=== PATIENT | female | born 1955 | race Caucasian/White ===

== ENCOUNTER 2017-07-09 05:37 | Outpatient (CLI) | payer MEDICARE, MEDICAID ==
[~2017-07-09] VITALS: Ht 149.9 cm; Wt 86.2 kg
[2017-07-09] MEDS ORDERED: NF-SOLIF5T PO (15:53)
[2017-07-09] MEDS ORDERED: FLUO20CA25 PO (15:53)
[2017-07-09] MEDS ORDERED: META800T PO (15:53)
[2017-07-09] MEDS ORDERED: HYDR-3820 PO (15:53)
[2017-07-09] MEDS ORDERED: OXCA300T PO (15:53)
[2017-07-09] MEDS ORDERED: GABA600T2 PO (15:53)
[2017-07-09] MEDS ORDERED: QUET200T57 PO (15:53)
[2017-07-09] MEDS ORDERED: MONT10TA24 PO (15:53)
[2017-07-09] MEDS ORDERED: DONE10TA41 PO (15:53)
[2017-07-09] MEDS ORDERED: BUSP15TA60 PO (15:53)
[2017-07-09] MEDS ORDERED: TRAZ100T92 PO (15:53)
[2017-07-09] MEDS ORDERED: OMEP40CA36 PO (15:53)
[2017-07-09] MEDS ORDERED: LOSA100T28 PO (15:53)
[2017-07-09] MEDS ORDERED: ALPR1TAB7 PO (15:53)
[2017-07-09] MEDS ORDERED: DICL75TA2 PO (15:53)
[2017-07-09] MEDS ORDERED: AMLO10TA2 PO (15:53)
[2017-07-09] MEDS ORDERED: ATOR80TA76 PO (15:53)
== END 2017-07-09 15:54 ==
LOC: PREOP 05:37
PROVIDERS: ATTEND Urology
DX: Z01.818 Encounter for other preprocedural examination (principal); N39.46 Mixed incontinence; N81.10 Cystocele, unspecified

== ENCOUNTER 2017-07-16 07:13 | Day surgery (SDC) | payer MEDICARE, MEDICAID ==
[~2017-07-16] VITALS: Ht 149.9 cm; Wt 90.8 kg
[~2017-07-16 07:13] MED LIST: ALPR1TAB7 PO; AMLO10TA2 PO; ATOR80TA76 PO; BUSP15TA60 PO; DICL75TA2 PO; DONE10TA41 PO; FLUO20CA25 PO; GABA600T2 PO; HYDR-3820 PO; LOSA100T28 PO; META800T PO; MONT10TA24 PO; NF-SOLIF5T PO; OMEP40CA36 PO; OXCA300T PO; QUET200T57 PO; TRAZ100T92 PO
[2017-07-16 07:15] VITALS: BP 150/70
[2017-07-16] MEDS ORDERED: ESTRADIOL VAGINAL CREAM 42.5 GM (ESTRACE) VG ONE (07:24)
[2017-07-16] MEDS ORDERED: LIDOCAINE/EPI 1%-1:200,000 (XYLOCAINE) 30 ML VIAL ONE (07:24)
[2017-07-16] MEDS ORDERED: LACTATED RINGERS 1,000 ML IV PRN (07:40)
[2017-07-16] MEDS ORDERED: FAMOTIDINE 20MG/2ML IV (PEPCID) IV ONE (07:45)
[2017-07-16] MEDS ORDERED: cefTRIAXone 1 GM (ROCEPHIN) VIAL ONE (07:57)
[2017-07-16] MEDS ORDERED: NS (IVPB) 50 ML ONE (07:57)
[2017-07-16] MEDS ORDERED: cefTRIAXone 1 GM/NS 50 ML IVPB IV ONE ×2 (08:15)
[2017-07-16] MEDS ORDERED: CATHETER FLUSH 10 ML SYR IV PRN (08:15)
[2017-07-16] MEDS ORDERED: AMIT25TA9 PO ×3 (08:31)
[2017-07-16] MEDS ORDERED: BUDE10.2 IH (08:31)
[2017-07-16] MEDS ORDERED: LORA10TA7 PO (08:31)
[2017-07-16] MEDS ORDERED: RT-ALBUINH IH (08:31)
[2017-07-16] MEDS ORDERED: OXYC-465 PO (08:41)
--- NOTE | 2017-07-16 08:49 | Progress Note-Pre Operative ---
Pre-Operative Progress Note H&P Reviewed The H&P was reviewed, patient examined and no changes noted. Date Seen by Provider: Jul 16, 2017 Time Seen by Provider: 08:48 Date H&P Reviewed: Jul 16, 2017 Time H&P Reviewed: 08:48 Pre-Operative Diagnosis: cystocele, mixed incontinence, OAB, ISD SUYAPA CHAVEZ MD Jul 16, 2017 8:49 am
[2017-07-16] MEDS ORDERED: MIDAZOLAM 2 MG/2 ML (VERSED) VIAL ONE (08:50)
[2017-07-16] MEDS ORDERED: fentaNYL INJECTION 100 MCG/2 ML AMP ONE (08:50)
--- NOTE | 2017-07-16 08:50 | Progress Note-Post Operative ---
Post-Operative Progess Note Surgeon (s)/Infection Control Specialist (s) Surgeon SUYAPA CHAVEZ MD Infection Control Specialist: N/A Pre-Operative Diagnosis cystocele, mixed incontinence, OAB, ISD Post-Operative Diagnosis SAME Procedure & Operative Findings Date of Procedure 07/16/17 Procedure Performed/Findings ANTERIOR REPAIR, PVS, CYSTOSCOPY Anesthesia Type GENERAL Estimated Blood Loss Estimated blood loss (mL): LESS THAN 50CC Specimens/Packing Specimens Removed N/A Packing: PREMARIN VAGINAL PACK SUYAPA CHAVEZ MD Jul 16, 2017 8:50 am
[2017-07-16] MEDS ORDERED: HYDROcodone/APAP 10 MG/325 MG (LORTAB) TAB PO PRN (09:00)
[2017-07-16] MEDS ORDERED: ONDANSETRON 4 MG/2 ML (SDV) Z0FRAN ONE (09:39)
[2017-07-16] MEDS ORDERED: SEVOFLURANE (ULTANE) 15 ML INHAL SOLN ONE (09:39)
[2017-07-16] MEDS ORDERED: LIDOCAINE PF 2% 5 ML (XYLOCAINE) VIAL ONE (09:39)
[2017-07-16] MEDS ORDERED: proPOfol 200 MG/20 ML (DIPRIVAN) VIAL IV ONE (09:39)
[2017-07-16] MEDS ORDERED: LACTATED RINGERS 1,000 ML IV ONE ×2 (09:39→10:24)
[2017-07-16] MEDS ORDERED: morphine INJ 10 MG/ML 1ML (SYR OR VIAL) ONE (10:14)
[2017-07-16] MEDS ORDERED: HYDROmorphone (DILAUDID) 2 MG/ML VIAL IVP PRN (10:15)
[2017-07-16] MEDS ORDERED: ONDANSETRON 4 MG/2 ML (SDV) Z0FRAN IVP PRN (10:15)
[2017-07-16] MEDS: LACTATED RINGERS 1,000 ML IV SCH ×3 (10:17→17:34)
[2017-07-16] MEDS: morphine INJ 10 MG/ML 1ML (SYR OR VIAL) IVP PRN ×2 (10:21→10:28)
[2017-07-16 11:00] VITALS: BP 135/63
[2017-07-16] MEDS ORDERED: RT-ALBUTEROL SULF 2.5 MG/3 ML PRE-MIX VIAL IH PRN (12:45)
[2017-07-16] MEDS ORDERED: GABAPENTIN 600 MG (NEURONTIN) TAB PO SCH (13:00)
[2017-07-16] MEDS ORDERED: busPIRone 15 MG (BUSPAR) TABLET PO SCH (13:00)
[2017-07-16] MEDS ORDERED: OXcarbazepine (TRILEPTAL) 300 MG TAB PO SCH (13:00)
[2017-07-16] MEDS ORDERED: PATIENT MAY USE OWN MEDS, ALL MC SCH (13:15)
[2017-07-16] MEDS: fentaNYL INJECTION 100 MCG/2 ML AMP IVP PRN ×2 (13:39→19:42)
[2017-07-16] MEDS ORDERED: ALBUTEROL IH PRN (14:45)
[2017-07-16 15:41] VITALS: BP 98/63
[2017-07-16] MEDS: oxyCODONE/APAP 10/325MG (PERCOCET 10) TABLET PO PRN (16:17)
[2017-07-16 19:13] VITALS: BP 131/57
[2017-07-16 19:50] VITALS: BP 109/57
[2017-07-16] MEDS: busPIRone 15 MG (BUSPAR) TABLET PO SCH (20:14)
[2017-07-16] MEDS: ALPRAZolam 1 MG (XANAX) TAB PO SCH (20:15)
[2017-07-16] MEDS: GABAPENTIN 600 MG (NEURONTIN) TAB PO SCH (20:17)
[2017-07-16] MEDS: OXcarbazepine (TRILEPTAL) 300 MG TAB PO SCH (20:19)
[2017-07-16] MEDS: METAXALONE 800 MG PO PRN (20:19)
[2017-07-16] MEDS ORDERED: amLODIPine 10 MG (NORVASC) TAB PO SCH (21:00)
[2017-07-16] MEDS ORDERED: traZODone 100 MG (DESYREL) TAB PO SCH (21:00)
[2017-07-16] MEDS ORDERED: ATORVASTATIN 80 MG (LIPITOR) TABLET PO SCH (21:00)
[2017-07-16] MEDS ORDERED: QUEtiapine 200 MG (SEROquel) TAB IMMEDIATE RELEASE PO SCH (21:00)
[2017-07-16] MEDS ORDERED: DONEPEZIL 10 MG (ARICEPT) TAB PO SCH (21:00)
[2017-07-16] MEDS ORDERED: AMITRIPTYLINE 25 MG (ELAVIL) TAB PO SCH (21:00)
[2017-07-16] MEDS ORDERED: MONTELUKAST 10 MG (SINGULAIR) TAB PO SCH (21:00)
[2017-07-17] MEDS: oxyCODONE/APAP 10/325MG (PERCOCET 10) TABLET PO PRN ×3 (00:10→13:38)
[2017-07-17 00:20] VITALS: BP 108/64
--- NOTE | 2017-07-17 01:40 | OPERATIVE REPORT ---
DATE OF SERVICE: PREOPERATIVE DIAGNOSIS: 1. Small cystocele. 2. Mixed incontinence. 3. Overactive bladder. 4. ISD. POSTOPERATIVE DIAGNOSIS: 1. Small cystocele. 2. Mixed incontinence. 3. Overactive bladder. 4. ISD. OPERATION PERFORMED: Tubovaginal sling with cystoscopy. SURGEON: Samir Chavez MD ANESTHESIA: General. COMPLICATIONS: None. PROCEDURE: Under satisfactory anesthesia, the patient in extended lithotomy position, genitalia were prepped and draped in the usual sterile fashion, including a separate vaginal prep. The catheter was inserted draining clear urine. The anterior vaginal wall was insufflated with lidocaine with epinephrine. An incision was made in the midline vertically starting 1 cm proximal the meatus. The mucosa was dissected off the underlying tissue. There was a very small cystocele not really needing any repair. Dissection was carried toward the pubic bone. Then the Solyx device was passed using the described technique. The sling was sitting nicely under the mid urethra. There was no twisting, no tension, and passage of a curved hemostat between it and the underlying tissue. Catheter was removed. The cystoscopy was performed to confirm the integrity of the bladder, ureters, and urethra and presence of the sling under the mid urethra. Bladder was left a little over half full. Cystoscope was removed and a manual Valsalva maneuver was performed and it was negative. Catheter was reinserted draining clear fluid, and the edges of the vaginal mucosa were freshened and then approximated with running 2-0 Vicryl suture. An Estrace vaginal pack was inserted. ESTIMATED BLOOD LOSS: Less than 50 mL, none of which was replaced. The patient tolerated the procedure and anesthesia well. Was sent to recovery room in stable condition. Job ID: [id number] DocumentID: [id number] Dictated Date: 07/16/2017 10:02:52 Child Psychometrist Date: 07/16/2017 19:20:50 Dictated By: SAMIR CHAVEZ MD
[2017-07-17] MEDS: LACTATED RINGERS 1,000 ML IV SCH ×3 (02:10→10:19)
[2017-07-17 04:10] VITALS: BP 127/71
[2017-07-17] MEDS: fentaNYL INJECTION 100 MCG/2 ML AMP IVP PRN ×2 (05:50→13:28)
[2017-07-17 07:56] VITALS: BP 111/64
[2017-07-17] MEDS: busPIRone 15 MG (BUSPAR) TABLET PO SCH ×2 (08:20→13:29)
[2017-07-17] MEDS: GABAPENTIN 600 MG (NEURONTIN) TAB PO SCH ×2 (08:21→13:30)
[2017-07-17] MEDS: OXcarbazepine (TRILEPTAL) 300 MG TAB PO SCH ×2 (08:22→13:31)
[2017-07-17] MEDS: ALPRAZolam 1 MG (XANAX) TAB PO SCH (08:22)
[2017-07-17] MEDS: METAXALONE 800 MG PO PRN (08:23)
[2017-07-17] MEDS ORDERED: LEVOFLOXACIN 250 MG/50 ML IVPB 50 ML IV SCH (08:50)
[2017-07-17] MEDS ORDERED: LORATADINE (CLARITIN) 10 MG TAB PO SCH (09:00)
[2017-07-17] MEDS ORDERED: FLUoxetine HCL 20 MG (PROzac) CAP PO SCH (09:00)
--- NOTE | 2017-07-17 09:33 | Anesthesia-General Post-Op ---
General Patient Condition Mental Status/LOC: Same as Preop Cardiovascular: Satisfactory Nausea/Vomiting: Absent Respiratory: Satisfactory Pain: Controlled Complications: Absent Post Op Complications Complications None Follow Up Care/Instructions Patient Instructions None needed. Anesthesia/Patient Condition Patient Condition Patient is doing well, no complaints, stable vital signs, no apparent adverse anesthesia problems. No complications reported per nursing. GABRIEL LAINEZ CRNA Jul 17, 2017 09:33
--- NOTE | 2017-07-17 11:57 | Progress Note-Urology ---
Progress Note-Urology Progress Notes/Assess & Plan Progress/Assessment & Plan AFEBRILE, VSS. FEELING WELL. TOLERATES PO WELL. VOIDING WELL, GOOD AMOUNTS, NO LEAKAGE, HAPPY. PLAN CHECK PVR AND MANAGE ACCORDINGLY Final Diagnosis INCONTINENCE, OAB, ISD SUYAPA CHAVEZ MD Jul 17, 2017 11:57
--- NOTE | 2017-07-17 12:48 | Discharge Inst-Urology ---
Discharge Inst-Urology Discharge Medications New, Converted, or Re-newed RX: Call to Patient Pharmacy Patient Instructions/Follow Up Plan Please make appointment to been seen in office in 2 weeks. Rest till then, including no driving and no sex Showers, no bath Keep bowels soft and moving Increase oral fluids for 48 hours and then as needed. Diet and Activity as tolerated. If questions or concerns contact your physician Or seek help at emergency department. SUYAPA CHAVEZ MD Jul 17, 2017 12:48 pm
[2017-07-17] MEDS ORDERED: SULF1TAB35 PO (13:14)
== END 2017-07-17 13:44 | disposition home or self-care (01) ==
LOC: SDC 07:13 → 4TH 11:00 → SDC 07-17 13:44
PROVIDERS: ATTEND Urology
DX: N81.10 Cystocele, unspecified (principal); N36.42 Intrinsic sphincter deficiency (ISD); N39.46 Mixed incontinence; N32.81 Overactive bladder; I10 Essential (primary) hypertension; I34.1 Nonrheumatic mitral (valve) prolapse; E11.9 Type 2 diabetes mellitus without complications; J45.909 Unspecified asthma, uncomplicated; K21.9 Gastro-esophageal reflux disease without esophagitis; M79.7 Fibromyalgia; Z86.718 Personal history of other venous thrombosis and embolism; Z87.891 Personal history of nicotine dependence; Z86.73 Personal history of transient ischemic attack (TIA), and cerebral infarction without residual deficits; Z79.899 Other long term (current) drug therapy
CPT/HCPCS: 82962; 87081; 94664

== ENCOUNTER → 2017-10-15 | Outpatient (CLI) | payer MEDICARE, MEDICAID ==
[~2017-10-15] MED LIST changes: +AMIT25TA9 PO; +BUDE10.2 IH; +IOHEXOL 350 MG/ML 150 ML (OMNIPAQUE 350) VIAL IV ONE; +LORA10TA7 PO; +NS 100 ML (IVPB) BAG IV ONE; +OXYC-465 PO; +RT-ALBUINH IH; +SULF1TAB35 PO
[2017-10-15 11:43] LABS: BLOOD UREA NITROGEN 9 MG/DL (7-18); BUN/CREATININE RATIO 12; CREATININE SERUM 0.76 MG/DL (0.60-1.30); GFR ESTIMATED > 60
--- NOTE | 2017-10-15 11:52 | Diagnostic Imaging Report ---
EXAMINATION: Bilateral lower extremity duplex venous ultrasound. TECHNIQUE: DVT protocol. Multiple sonographic images with color Doppler and waveform interrogation were performed of the lower extremity veins, bilaterally, with compression and augmentation maneuvers. INDICATION: Bilateral leg pain. FINDINGS: The lower extremity veins from the common femoral veins to below the knee veins were examined with normal color-flow, compressibility and normal waveform demonstrated. The great saphenous vein on the left side is patent. The great saphenous vein on the right side is not demonstrated. IMPRESSION: No evidence of DVT in either lower extremity. Dictated by: Dictated on workstation # [id number]
--- NOTE | 2017-10-15 13:25 | Diagnostic Imaging Report ---
PROCEDURE: CT angiography of the chest with contrast. TECHNIQUE: Multiple contiguous axial images were obtained through the chest after uneventful bolus administration of intravenous contrast. Reconstructed CTA MIP acquisitions were also performed. INDICATION: COPD. Chest pain. Shortness of air. COMPARISON: Chest radiograph dated 07/12/2009. FINDINGS: There is no evidence of acute pulmonary embolus to the first subsegmental division of the pulmonary arteries. Heart size is within normal limits. There is a small pericardial effusion. Note is made of mild calcified aortic and coronary atherosclerosis. No pathologically enlarged or morphologically abnormal adenopathy is seen within the mediastinum, elijah, nor axilla. Lung windows show no focal consolidation, pleural effusion, nor pneumothorax. Micronodular density is noted associated with the anterior margins of the minor fissure and measures approximately 6 mm in diameter. A 6 mm micronodular density is also noted within the lateral base of the right lower lobe (images 57 and 108, series 4). Bony structures show no acute abnormalities. No lytic or blastic lesions are seen. Indwelling neurostimulator is noted. Included portions of the upper abdomen are unremarkable. IMPRESSION: 1. No evidence of acute pulmonary embolus. 2. Small pericardial effusion. 3. Small right-sided pulmonary micronodules. Six-month followup is recommended. Dictated by: Dictated on workstation # [id number]
== END ==
LOC: RAD 11:13
PROVIDERS: ATTEND Nurse Practitioner Family
DX: M79.661 Pain in right lower leg (principal); M79.662 Pain in left lower leg; J90 Pleural effusion, not elsewhere classified; R91.8 Other nonspecific abnormal finding of lung field; Z86.718 Personal history of other venous thrombosis and embolism
CPT/HCPCS: 36415; 71275; 82565; 84520; 93970

== ENCOUNTER 2017-11-06 19:20 | Outpatient (CLI) | payer MEDICARE, MEDICAID ==
[~2017-11-06 19:20] MED LIST changes: -RT-ALBUTEROL SULF 2.5 MG/3 ML PRE-MIX VIAL IH ONE
== END 2017-11-07 06:00 | disposition home or self-care (01) ==
LOC: SLEEP 19:20
PROVIDERS: ATTEND Nurse Practitioner Family
DX: G47.10 Hypersomnia, unspecified (principal); G47.34 Idiopathic sleep related nonobstructive alveolar hypoventilation; G47.00 Insomnia, unspecified; G47.50 Parasomnia, unspecified
CPT/HCPCS: 95810

== ENCOUNTER → 2017-11-06 | Outpatient (CLI) | payer MEDICARE, MEDICAID ==
[~2017-11-06] MED LIST changes: -IOHEXOL 350 MG/ML 150 ML (OMNIPAQUE 350) VIAL IV ONE; -NS 100 ML (IVPB) BAG IV ONE; +RT-ALBUTEROL SULF 2.5 MG/3 ML PRE-MIX VIAL IH ONE
== END ==
LOC: RT 12:53
PROVIDERS: ATTEND Nurse Practitioner Family
DX: J44.9 Chronic obstructive pulmonary disease, unspecified (principal); J45.909 Unspecified asthma, uncomplicated
CPT/HCPCS: 94060; 94726; 94729

== ENCOUNTER → 2017-11-28 | Outpatient (CLI) | payer MEDICARE, MEDICAID | LOC: CARD 10:56 | PROVIDERS: ATTEND Nurse Practitioner Family | DX: R06.00 Dyspnea, unspecified (principal) | CPT/HCPCS: 93306 ==

== ENCOUNTER → 2018-10-14 | Outpatient (CLI) | payer MEDICARE, MEDICAID ==
[~2018-10-14] MED LIST changes: -AMLO10TA2 PO; +AMLO10TA6 PO; -LOSA100T28 PO; +LOSA100T8 PO; -OXCA300T PO; +OXCA300T18 PO; +TRAZ-190 PO; -TRAZ100T92 PO
[2018-10-14 10:45] LABS: BUN/CREATININE RATIO 13; CREATININE SERUM 0.77 MG/DL (0.60-1.30); GFR ESTIMATED > 60
== END ==
LOC: LAB 10:11
PROVIDERS: ATTEND Nurse Practitioner Family
DX: G47.00 Insomnia, unspecified (principal); G47.50 Parasomnia, unspecified; G47.33 Obstructive sleep apnea (adult) (pediatric); J44.9 Chronic obstructive pulmonary disease, unspecified; J18.9 Pneumonia, unspecified organism
CPT/HCPCS: 36415; 82565; 84520

== ENCOUNTER 2018-11-28 20:00 | Outpatient (CLI) | payer MEDICARE, MEDICAID | END 2018-11-29 06:00 | disposition home or self-care (01) | LOC: SLEEP 20:00 | PROVIDERS: ATTEND Nurse Practitioner Family | DX: G47.33 Obstructive sleep apnea (adult) (pediatric) (principal); G47.00 Insomnia, unspecified; J18.9 Pneumonia, unspecified organism; J44.0 Chronic obstructive pulmonary disease with (acute) lower respiratory infection | CPT/HCPCS: 95810 ==

== ENCOUNTER → 2018-12-08 | Outpatient (CLI) | payer MEDICARE, MEDICAID ==
[~2018-12-08] MED LIST changes: +ALB0.5V INH; +FLUT16SP22 NSEACH; +FLUT1BLS IH; +GABA800T2 PO; +HYDR-3781 PO; +IOHEXOL 350 MG/ML 150 ML (OMNIPAQUE 350) VIAL IV ONE; +LOSA1TAB23 PO; +METO-333 PO; +NS 100 ML (IVPB) BAG IV ONE; +OXYC10TA7 PO; +PREG150C PO; +QUET100T69 PO; +QUET400T12 PO; +RECEIVED CONTRAST (Hold Metformin) IV SCH; +RT-ALBUINH INH; +VORT10TA PO
[2018-12-08 10:51] LABS: BUN/CREATININE RATIO 13; CREATININE SERUM 0.85 MG/DL (0.60-1.30); GFR ESTIMATED > 60
--- NOTE | 2018-12-08 11:47 | Diagnostic Imaging Report ---
PROCEDURE: CT angiography of the chest with contrast. TECHNIQUE: Multiple contiguous axial images were obtained through the chest after uneventful bolus administration of intravenous contrast. 2D reconstructed CTA MIP acquisitions were also performed. INDICATION: Difficulty breathing and pneumonia. Correlation is made with prior exam from 10/15/2017. Evaluation of the pulmonary arterial system is without evidence of thromboembolus. No filling defects are seen within central, lobar or segmental branches. The thoracic aorta is normal in caliber. Small pericardial effusion is again seen. No pleural effusion is identified. No axillary, hilar or mediastinal lymphadenopathy is identified. Nodular density right middle lobe as well as a lateral portion of the right lower lobe is stable. There is some linear atelectasis or scarring in the lingula. There are some patchy groundglass infiltrates bilaterally greatest in the right upper and right lower lobes, likely on an infectious/inflammatory basis. Upper abdomen is unremarkable. Impression: 1. No evidence of pulmonary embolism or thoracic aortic dissection. 2. Small pericardial effusion, stable. 3. Patchy groundglass infiltrates, greatest on the right, likely on an infectious/inflammatory basis. Dictated by: Dictated on workstation # [id number]
[2018-12-08 11:49] LABS: ABG BASE EXCESS -1.4 MMOL/L (-2.5-2.5); ABG OXYGEN SATURATION 94 % (94-100); ABG PCO2 46 MMHG (35-45); ABG PO2 70 MMHG (79-93); ABG TCO2 25.2 MMOL/L (21.0-31.0)
[2018-12-08 12:00] LABS: ABG PH 7.33 (7.37-7.43); ALLENS TEST YES-POS; INSPIRED O2 ROOM AIR; VENTILATOR NO
== END ==
LOC: RAD 10:10
PROVIDERS: ATTEND Nurse Practitioner Family
DX: I31.3 Pericardial effusion (noninflammatory) (principal); J18.9 Pneumonia, unspecified organism; G47.00 Insomnia, unspecified; J44.9 Chronic obstructive pulmonary disease, unspecified; G47.50 Parasomnia, unspecified; G47.33 Obstructive sleep apnea (adult) (pediatric)
CPT/HCPCS: 36415; 36600; 71275; 82565; 82805; 84520

== ENCOUNTER → 2018-12-08 | Outpatient (CLI) | payer MEDICARE, MEDICAID ==
[~2018-12-08] MED LIST changes: -IOHEXOL 350 MG/ML 150 ML (OMNIPAQUE 350) VIAL IV ONE; -NS 100 ML (IVPB) BAG IV ONE; -RECEIVED CONTRAST (Hold Metformin) IV SCH
[2018-12-08 14:46] LABS: BASOPHILS % (AUTO) 1 % (0-10); EOSINOPHILS # (AUTO) 0.1 10^3/uL (0.0-0.3); EOSINOPHILS % (AUTO) 2 % (0-10); HEMATOCRIT 33 % (35-52); HEMOGLOBIN 10.5 G/DL (11.5-16.0); LYMPHOCYTES # (AUTO) 0.8 X 10^3 (1.0-4.0); LYMPHOCYTES % (AUTO) 16 % (12-44); MEAN CORPUSCULAR HEMOGLOBIN 27 PG (25-34); MEAN CORPUSCULAR HGB CONC 32 G/DL (32-36); MEAN CORPUSCULAR VOLUME 84 FL (80-99); MEAN PLATELET VOLUME 9.5 FL (7.4-10.4); MONOCYTES # (AUTO) 0.7 X 10^3 (0.0-1.0); MONOCYTES % (AUTO) 13 % (0-12); NEUTROPHILS # (AUTO) 3.6 X 10^3 (1.8-7.8); NEUTROPHILS % (AUTO) 68 % (42-75); PLATELET COUNT 350 10^3/uL (130-400); RED BLOOD COUNT 3.93 10^6/uL (4.35-5.85); WHITE BLOOD COUNT 5.2 10^3/uL (4.3-11.0)
== END ==
LOC: LAB 14:20
PROVIDERS: ATTEND Nurse Practitioner Family
DX: J44.0 Chronic obstructive pulmonary disease with (acute) lower respiratory infection (principal); J18.9 Pneumonia, unspecified organism; J45.909 Unspecified asthma, uncomplicated; G47.00 Insomnia, unspecified; G47.50 Parasomnia, unspecified
CPT/HCPCS: 36415; 85025

== ENCOUNTER 2018-12-10 05:39 | Outpatient (CLI) | payer MEDICARE, MEDICAID ==
[~2018-12-10] VITALS: Ht 149.9 cm; Wt 86.6 kg
[~2018-12-10 05:39] MED LIST changes: -ALB0.5V INH; -FLUT16SP22 NSEACH; -FLUT1BLS IH; -GABA800T2 PO; -HYDR-3781 PO; -LOSA1TAB23 PO; -METO-333 PO; -OXYC10TA7 PO; -PREG150C PO; -QUET100T69 PO; -QUET400T12 PO; -RT-ALBUINH INH; -VORT10TA PO
[2018-12-10] MEDS ORDERED: VORT10TA PO (10:50)
[2018-12-10] MEDS ORDERED: GABA800T2 PO (10:50)
[2018-12-10] MEDS ORDERED: RT-ALBUINH INH (10:50)
[2018-12-10] MEDS ORDERED: OXYC10TA7 PO (10:50)
[2018-12-10] MEDS ORDERED: FLUT16SP22 NSEACH (10:50)
[2018-12-10] MEDS ORDERED: ALB0.5V INH (10:50)
[2018-12-10] MEDS ORDERED: QUET400T12 PO (10:50)
[2018-12-10] MEDS ORDERED: HYDR-3781 PO (10:50)
[2018-12-10] MEDS ORDERED: PREG150C PO (10:50)
[2018-12-10] MEDS ORDERED: METO-333 PO (10:50)
[2018-12-10] MEDS ORDERED: QUET100T69 PO (10:50)
[2018-12-10] MEDS ORDERED: LOSA1TAB23 PO (10:50)
[2018-12-10] MEDS ORDERED: FLUT1BLS IH (10:50)
== END 2018-12-10 10:51 | disposition home or self-care (01) ==
LOC: PREOP 05:39
PROVIDERS: ATTEND Internal Medicine Critical Care Medicine
DX: Z01.818 Encounter for other preprocedural examination (principal)

== ENCOUNTER 2018-12-11 07:01 | Day surgery (SDC) | payer MEDICARE, MEDICAID ==
[~2018-12-11] VITALS: Ht 149.9 cm; Wt 86.6 kg
[~2018-12-11 07:01] MED LIST changes: +ALB0.5V INH; +FLUT16SP22 NSEACH; +FLUT1BLS IH; +GABA800T2 PO; +HYDR-3781 PO; +LOSA1TAB23 PO; +METO-333 PO; +OXYC10TA7 PO; +PREG150C PO; +QUET100T69 PO; +QUET400T12 PO; +RT-ALBUINH INH; +VORT10TA PO
[2018-12-11] MEDS ORDERED: LIDOCAINE PF 2% 5 ML (XYLOCAINE) VIAL INJ ONE (07:02)
[2018-12-11] MEDS ORDERED: LIDOCAINE PF 1% 2 ML AMP IJ ONE (07:02)
[2018-12-11] MEDS ORDERED: LIDOCAINE JELLY 2% (XYLOCAINE) 30 ML TUBE TOP ONE (07:02)
[2018-12-11] MEDS ORDERED: NS IV 500 ML 500 ML IV PRN (07:07)
[2018-12-11] MEDS ORDERED: fentaNYL INJECTION 100 MCG/2 ML AMP IVP ONE (07:15)
[2018-12-11] MEDS ORDERED: MIDAZOLAM 2 MG/2 ML (VERSED) VIAL IVP ONE (07:15)
--- NOTE | 2018-12-11 07:20 | Progress Note-Pre Operative ---
Pre-Operative Progress Note H&P Reviewed The H&P was reviewed, patient examined and no changes noted. Time Seen by Provider: 07:20 Date H&P Reviewed: Dec 11, 2018 Time H&P Reviewed: 07:20 Pre-Operative Diagnosis: infiltration. ERIC OLSON DO Dec 11, 2018 07:20
--- NOTE | 2018-12-11 07:22 | Pre-Op Note & Conscious Sedat ---
Pre-Operative Progress Note H&P Reviewed The H&P was reviewed, patient examined and no changes noted. Date H&P Reviewed: Dec 11, 2018 Time H&P Reviewed: 07:22 Conscious Sedation Pre-Proced Time 07:20 ASA Score 3 For ASA 3 and 4: Consider anesthesia and medical clearance. Also, for patients with a history of failed moderate sedation consider anesthesia. Airway Lungs Heart ASA score ASA 1: a normal healthy patient ASA 2: a patient with a mild systemic disease (mid diabetes, controlled hypertension, obesity ASA 3: a patient with a severe systemic disease that limits activity (angina , COPD, prior Myocardial infarction) ASA 4: a patient with an incapacitating disease that is a constant threat to life (CHF, renal failure) ASA 5: a moribund patient not expected to survive 24 hrs. (ruptured aneurysm) ASA 6: a declared brain patient whose organs are being harvested. For emergent operations, add the letter E after the classification Mallampati Classification Grade 3 Sedation Plan Analgesia, Amnesia, Plan communicated to team members, Discussed options with patient/fam, Discussed risks with patient/fam The patient is an appropriate candidate to undergo the planned procedure, sedation, and anesthesia. The patient immediately re-assessed prior to indication. ERIC OLSON DO Dec 11, 2018 07:22
--- NOTE | 2018-12-11 07:23 | Pulmonary Procedures ---
Pulmonary Procedures Date of Procedure Date of Service: Dec 11, 2018 Bronch Bronchoscopy with fluoroscopy RML bronchoalveolar lavage (BAL), transbronchial washes and, transbronchial brushes x 2 . Percepta [place] x 2 of jimmy. Preop DX Pneumonia Postop DX: same Complications: none After informed consent obtained and formal time out pt was sedated using Fentanyl and Versed. Bronchoscope was advanced through the nare and vocal cords. 1% lidocaine was used to anesthetize vocal cords, epiglottis, jimmy, and left/right main stem bronchus. An anatomical tour was undertaken down to the segmental bronchi bilaterally. No endobronchial lesions noted. Using fluoroscopy bronchoalveolar lavage (BAL), transbronchial washes and, transbronchial brushes x 2 RML and Percepta [place] x 2 of jimmy were obtained. Pt tolerated procedure well. No complications noted. Stat CXR is pending. ERIC OLSON DO Dec 11, 2018 07:23
[2018-12-11 07:30] VITALS: BP 127/57
[2018-12-11] MEDS ORDERED: fentaNYL INJECTION 100 MCG/2 ML AMP ONE ×2 (07:32)
[2018-12-11] MEDS ORDERED: MIDAZOLAM 2 MG/2 ML (VERSED) VIAL ONE ×4 (07:32)
[2018-12-11 08:40] VITALS: BP 166/59
--- NOTE | 2018-12-11 09:00 | Diagnostic Imaging Report ---
INDICATION: Followup bronchoscopy. Portable chest 8:40 AM There is infiltrate present in the right middle lobe just below the minor fissure. Patient has dorsal column stimulator. There is no effusion or pneumothorax. IMPRESSION: Infiltrate lateral segment right middle lobe. This could be however hemorrhage from biopsy. Clinical correlation recommended. Dictated by: Dictated on workstation # [id number]
[2018-12-11 09:10] VITALS: BP 159/68
--- NOTE | 2018-12-11 09:15 | Diagnostic Imaging Report ---
INDICATION: Bronchoscopy by Dr. Polanco. Fluoroscopy was provided for Dr. Polanco during bronchoscopy. A total of 14 seconds of fluoroscopic time was utilized. IMPRESSION: Fluoroscopy for bronchoscopy. Dictated by: Dictated on workstation # [id number]
[2018-12-11 10:20] VITALS: BP 159/68
[2018-12-11 10:28] LABS: BF OTHER CELLS 21 %; BODY FLUID APPEARENCE MOD CLDY; BODY FLUID COLOR COLORLESS; BODY FLUID SOURCE BRONCHIAL LAVAGE; LYMPHOCYTES,BODY FLUID 75 %
== END 2018-12-11 10:20 | disposition home or self-care (01) ==
LOC: ENDO 07:01
PROVIDERS: ATTEND Internal Medicine Critical Care Medicine
DX: J18.9 Pneumonia, unspecified organism (principal); J44.0 Chronic obstructive pulmonary disease with (acute) lower respiratory infection; J45.909 Unspecified asthma, uncomplicated; G47.50 Parasomnia, unspecified; R09.02 Hypoxemia; Z79.899 Other long term (current) drug therapy
CPT/HCPCS: 71045; 87015; 87070; 87101; 87116; 87205; 87206; 88112; 88305; 88312; 89051

== ENCOUNTER → 2019-07-10 | Outpatient (CLI) | payer MEDICARE, MEDICAID ==
[~2019-07-10] MED LIST changes: -AMLO10TA6 PO; +AMLO10TA7 PO; -GABA600T2 PO; +GABA800T10 PO; -GABA800T2 PO; +GBPN600T PO; +LOSA100T57 PO; -LOSA100T8 PO; +RT-ALBUTEROL SULF 2.5 MG/3 ML PRE-MIX VIAL INH ONE
--- NOTE | 2019-07-10 12:15 | Diagnostic Imaging Report ---
PROCEDURE: CT chest without contrast. TECHNIQUE: Multiple contiguous axial images were obtained through the chest without the use of intravenous contrast. Auto Exposure Controls were utilized during the CT exam to meet ALARA standards for radiation dose reduction. INDICATION: Pulmonary nodule and dyspnea. COMPARISON: Correlation is made with prior CT chest from 12/08/2018. FINDINGS: No axillary lymphadenopathy is detected. No definite hilar or mediastinal mass is seen, although evaluation is limited without intravenous contrast. There are coronary arterial calcifications present. Pericardial fluid appears similar to prior exam. No pleural effusion is detected. Previously noted patchy infiltrates throughout both lungs appear to be largely resolved. There is some residual linear density in the lingula, most suggestive of scarring. There is minimal tree-in-bud infiltrate in the right upper lobe which appears new since prior exam. Triangular-shaped opacity in the right upper lobe, image 23, is stable. Upper abdomen is unremarkable. IMPRESSION: 1. Stable pericardial effusion. 2. Majority of previously noted patchy airspace infiltrates of bilateral lungs noted on CT from 12/08/2018 have resolved. There is some minimal tree-in-bud infiltrate in the right upper lobe, likely on an infectious/inflammatory basis. Dictated by: Dictated on workstation # [id number]
== END ==
LOC: RT 08:49
PROVIDERS: ATTEND Nurse Practitioner Family
DX: J45.909 Unspecified asthma, uncomplicated (principal); G47.00 Insomnia, unspecified; J42 Unspecified chronic bronchitis; I31.3 Pericardial effusion (noninflammatory); J18.9 Pneumonia, unspecified organism
CPT/HCPCS: 71250; 94060; 94726; 94729

== ENCOUNTER 2019-08-05 08:30 | Outpatient (CLI) | payer MEDICARE, MEDICAID ==
[~2019-08-05] VITALS: Ht 149.9 cm; Wt 83.9 kg
[~2019-08-05 08:30] MED LIST changes: -RT-ALBUTEROL SULF 2.5 MG/3 ML PRE-MIX VIAL INH ONE
[2019-08-05] MEDS ORDERED: FLUT1AER IH (13:22)
[2019-08-05] MEDS ORDERED: LOSA25TA41 PO (13:22)
[2019-08-05] MEDS ORDERED: BUSP15TA60 PO (13:22)
[2019-08-05] MEDS ORDERED: CYCL10TA9 PO (13:22)
[2019-08-05] MEDS ORDERED: CETI10TA17 PO (13:22)
[2019-08-05] MEDS ORDERED: HYDR4TAB PO (13:22)
== END 2019-08-05 13:23 ==
LOC: PREOP 08:30
PROVIDERS: ATTEND Internal Medicine Critical Care Medicine
DX: Z01.818 Encounter for other preprocedural examination (principal); J44.9 Chronic obstructive pulmonary disease, unspecified; J18.9 Pneumonia, unspecified organism; G47.00 Insomnia, unspecified; G47.50 Parasomnia, unspecified